=== PATIENT | female | born 1960 | race Caucasian/White ===

== ENCOUNTER 2016-09-01 19:34 | Inpatient (IN) | payer OTHER ==
[~2016-09-01] VITALS: Ht 157.5 cm; Wt 67.5 kg
[~2016-09-01 19:34] MED LIST: ACET325T33 PO; BACTDS PO; CEPH-443 PO
[2016-09-01] MEDS ORDERED: morphine 4 MG/ML VIAL IV STA (21:49)
[2016-09-01] MEDS ORDERED: SOD CHLORIDE 0.9% 1,000 ML IV STA (21:49)
[2016-09-01] MEDS ORDERED: ONDANSETRON 4 MG INJ IV STA ×2 (21:49→23:36)
[2016-09-01 22:52] LABS: ADD UMIC YES; URINE BILIRUBIN (Dip) NEGATIVE (NEGATIVE); URINE BLOOD (Dip) 1+ (NEGATIVE); URINE COLOR YELLOW (YELLOW); URINE KETONES (Dip) TRACE (NEGATIVE); URINE LEUKOCYTE ESTERASE (Dip) 1+ (NEGATIVE); URINE NITRITE (Dip) NEGATIVE (NEGATIVE); URINE TOTAL PROTEIN (Dip) 1+ (NEGATIVE); URINE UROBILINOGEN (Dip) 0.2 E.U./dL (0.1-1.0)
[2016-09-01 23:11] LABS: SQUAMOUS EPITHELIAL CELL,UR MANY
[2016-09-01 23:12] LABS: BACTERIA,URINE MANY
[2016-09-01 23:32] LABS: ADD SCAN DIFF NO
[2016-09-01] MEDS ORDERED: HYDROmorphONE 1 MG/ML SYG IV STA (23:36)
[2016-09-01 23:37] LABS: ABNORMAL IP MESSAGE 1; BASOPHIL # 0.1 10^3/ul (0.0-0.1); BASOPHILS % 0.3 % (0.0-2.0); EOSINOPHILS # 0.2 10^3/ul (0.0-0.5); HEMATOCRIT 33.1 % (37.0-47.0); HEMOGLOBIN 11.1 g/dl (12.0-16.0); LYMPHOCYTES # 2.3 10^3/ul (0.8-2.9); LYMPHOCYTES % 10.1 % (15.0-51.0); MEAN CORPUSCULAR HGB CONC 33.5 g/dl (32.0-37.0); MEAN CORPUSCULAR VOLUME 86.4 fl (82.0-101.0); MEAN PLATELET VOLUME 9.5 fl (7.4-10.4); MONOCYTE # 1.7 10^3/ul (0.3-0.9); MONOCYTES % 7.5 % (0.0-11.0); NEUTROPHIL # 18.4 10^3/ul (1.6-7.5); NEUTROPHILS % 80.1 % (39.0-77.0); PLATELET COUNT 503 10^3/UL (140-415); RED BLOOD COUNT 3.83 10^6/ul (4.20-5.40); RED CELL DISTRIBUTION WIDTH 12.9 % (11.5-14.5)
--- NOTE | 2016-09-01 23:37 | RADRPT ---
PROCEDURE: CT ABDOMEN/PELVIS WITHOUT CONTRAST CLINICAL INDICATION: 56-year-old female with abdominal pain. TECHNIQUE: The study was performed utilizing a [employer] VCT 64-slice CT scanner. Direct axia l sections were obtained through the abdomen and pelvis without the use of intravenous contrast mate rial. Sagittal and coronal reformations were obtained. One or more of the following dose reduction t echniques were utilized: automated exposure control, adjustment of the mA and/or kV according to pat ient's size or use of iterative reconstruction technique. The images were reviewed on a PACS workst [employer]. CTD/vol = 8.9 mGy; Total Exam DLP = 515.1 mGy-cm. COMPARISON: Right upper quadrant ultrasound September 01, 2016. FINDINGS: There is a minimal right pleural effusion with mild right basilar subsegmental atelectasis. The erica er has a normal size and contour. There is a cyst identified within the medial segment of the left lobe of the liver measuring approximately 1.6 x 1.7 x 1.8 cm on axial image 3-31. No intrahepatic n or extrahepatic biliary ductal dilatation is seen. The gallbladder demonstrates no wall thickening n or pericholecystic fluid. No biliary stones are evident. The pancreas is without areas of abnormal a ttenuation. The spleen is identified and has a normal size without abnormal density. The adrenal gl ands are unremarkable. There is mild prominence of the right renal collecting system without deni o bstructive uropathy. The left kidney is without abnormal density, calculi or obstruction.. No hydro ureteronephrosis nor nephroureterolithiasis is evident. The urinary bladder contains urine. The appe ndix is difficult to discern from the adjacent small bowel however appears to be diffusely dilated measuring up to 13 mm with extensive inflammatory changes within the right lower quadrant. There is diffuse thickening and edematous appearance to the ascending colon measuring up to 8.[address] transverse dimension which may be secondarily involved. The uterus is unremarkable. There is no significant pelvic free fluid. The aortoiliac vessels are without aneurysmal dilatation. The osseou s structures are intact. There is nonspecific infiltration of the right flank soft tissues. IMPRESSION: 1. Minimal right pleural effusion with basilar subsegmental atelectasis. 2. Left hepatic cyst. 3. Mild prominence of the right renal collecting system without deni obstructive uropathy. 4. The appendix is somewhat difficult to discern from the adjacent small bowel however appears to b e diffusely dilated measuring up to 13 mm with extensive surrounding right lower quadrant infiltrati on suggestive of acute appendicitis. Clinical correlation is necessary. 5. Dilated diffusely thickened ascending colon which may be secondary involved however a superimpos ed colitis or underlying tumor cannot be totally excluded. CRITICAL RESULTS: A call report was made to [facility] MG Crouch on September 01, 2016 11:27 p. m. .Dangelo Morales MD, MD Date Time Electronically viewed and signed by .Dangelo Morales MD, MD on 09/01/2016 23:37 .M/
--- NOTE | 2016-09-01 23:38 | RADRPT ---
PROCEDURE: ULTRASOUND LIMITED ABDOMEN CLINICAL INDICATION: 56-year-old female with abdominal pain. TECHNIQUE: Multiple sonographic of the right upper quadrant of the abdomen were obtained. The imag es were reviewed on a PACS workstation. COMPARISON: None. FINDINGS: The pancreas is partially visualized and is otherwise without abnormal echogenicity. The liver displays normal echogenicity. The liver measures 13.7 cm in length. No evidence of intrah epatic biliary ductal dilatation is seen. The portal and hepatic veins are unremarkable. The gallbladder demonstrates no wall thickening, sludge, nor stones. No pericholecystic fluid is see n. The common bile duct measures 5.6 mm and is not dilated. The right kidney displays normal echogenicity. The right kidney measures 11.7 cm in maximal length. There is mild prominence of the right renal collecting system without deni hydronephrosis. No free fluid is seen. IMPRESSION: Mild prominence of the right renal collecting system without deni hydronephrosis. .Dangelo Morales MD, MD Date Time Electronically viewed and signed by .Dangelo Morales MD, on 09/01/2016 23:38 .M/
[2016-09-02] VITALS (23 sets, daily range): BP systolic 96–148; BP diastolic 53–81; PULSE 85–100; RESP 16–31; TEMP 99.1; Ht 157.5 cm; Wt 67.5 kg
[2016-09-02] MEDS ORDERED: PIPER-TAZO 3.375 GM IV (PMX) 100 ML IVPB ONE
[2016-09-02] MEDS ORDERED: SOD CHLORIDE 0.9% 1,000 ML IV ONE
[2016-09-02 00:07] LABS: ALBUMIN 3.4 g/dl (3.3-4.9)
[2016-09-02 00:08] LABS: POTASSIUM 4.1 mmol/L (3.5-5.1)
[2016-09-02 00:09] LABS: INR 1.06; PARTIAL THROMBOPLASTIN TIME 25.2 Sec (25.0-35.0); PROTIME 13.8 Sec (12.2-14.2); PT RATIO 1.1
[2016-09-02 00:10] LABS: BILIRUBIN,INDIRECT 0.1 mg/dl (0-1.1); BILIRUBIN,TOTAL 0.1 mg/dl (0.2-1.3); CREATININE 0.83 mg/dl (0.44-1.00)
[2016-09-02 00:11] LABS: ALBUMIN/GLOBULIN RATIO 0.72; CALCIUM 8.8 mg/dl (8.4-10.2); TOTAL PROTEIN 8.1 g/dl (6.1-8.1)
--- NOTE | 2016-09-02 00:30 | ERD ---
ER Documentation Chief Complaint Date/Time DATE: 09/02/16 TIME: 00:27 Chief Complaint AP x3 days HPI This is a 56-year-old female presents to the ER with right-sided abdominal pain for the last 5 days. Pain is sharp and intermittent. Movement makes pain worse. Patient took an aspirin for pain however this did not help. Patient's appetite has been decreased has not been able to eat anything. She denies any nausea vomiting or diarrhea. She does have a fever. Patient denies any urinary frequency or dysuria. She denies any hematuria she denies any chest pain or shortness of breath. ROS 12 point review of systems was done, all negative except per HPI. 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 HEENT: Atraumatic. CHEST: Clear to auscultation bilaterally. There are no rales, wheezes or rhonchi. HEART: Regular rate and rhythm. No murmurs, clicks, rubs or gallops. ABDOMEN: Tender to palpation in the right lower quadrant.. Good bowel sounds. No rebound or guarding. No gross peritonitis. No gross organomegaly or masses. Positive McBurney's point BACK: No midline or flank tenderness. EXTREMITIES: Full range of motion. Grossly neurovascularly intact. NEURO: Alert and oriented. Result Diagram: 09/01/16 2325 09/01/16 2325 Results 24 hrs Laboratory Tests Test 09/01/16 22:15 09/01/16 23:25 09/01/16 23:48 Urine Bacteria MANY Urine Bilirubin NEGATIVE Urine Clarity SLIGHTLY CLOUDY Urine Color YELLOW Urine Glucose 0.1%% Urine Hemoglobin 1+ Urine Ketones TRACE Urine Leukocyte Esterase 1+ Urine Microscopic RBC 10-25/HPF Urine Microscopic WBC 25-50/HPF Urine Nitrite NEGATIVE Urine Specific [place] 1.020 Urine Squamous Epithelial Cells MANY Urine Total Protein 1+ Urine Urobilinogen 0.2 E.U./dL Urine pH 6.0 Alanine Aminotransferase (ALT/SGPT) 20IU/L Albumin 3.4g/dl Albumin/Globulin Ratio 0.72 Alkaline Phosphatase 148IU/L Anion Gap 20 Aspartate Amino Transf (AST/SGOT) 19IU/L Basophils # 0.110^3/ul Basophils % 0.3% Blood Urea Nitrogen 16mg/dl Calcium Level 8.8mg/dl Carbon Dioxide Level 26mmol/L Chloride Level 97mmol/L Creatinine 0.83mg/dl Direct Bilirubin 0.00mg/dl Eosinophils # 0.210^3/ul Eosinophils % 1.0% Globulin 4.70g/dl Glucose Level 176mg/dl Hematocrit 33.1% Hemoglobin 11.1g/dl Indirect Bilirubin 0.1mg/dl Lipase 28U/L Lymphocytes # 2.310^3/ul Lymphocytes % 10.1% Mean Corpuscular Hemoglobin 29.0pg Mean Corpuscular Hemoglobin Concent 33.5g/dl Mean Corpuscular Volume 86.4fl Mean Platelet Volume 9.5fl Monocytes # 1.710^3/ul Monocytes % 7.5% Neutrophils # 18.410^3/ul Neutrophils % 80.1% Nucleated Red Blood Cells # 0.010^3/ul Nucleated Red Blood Cells % 0.0/100WBC Platelet Count 04747^3/UL Potassium Level 4.1mmol/L Red Blood Count 3.8310^6/ul Red Cell Distribution Width 12.9% Sodium Level 139mmol/L Total Bilirubin 0.1mg/dl Total Protein 8.1g/dl White Blood Count 23.010^3/ul Activated Partial Thromboplast Time 25.2Sec INR International Normalized Ratio 1.06 Prothrombin Time 13.8Sec Prothrombin Time Ratio 1.1 Current Medications Medications (Trade) Dose Ordered Sig/Priya Route PRN Reason Start Time Stop Time Status Last Admin Dose Admin Sodium Chloride (NS) 1,000 ml @ 1,000 mls/hr Q1H STAT IV 09/01/16 21:49 09/01/16 22:48 DC 09/01/16 23:39 Morphine Sulfate (morphine) 4 mg ONCE STAT IV 09/01/16 21:49 09/01/16 21:51 DC 09/01/16 23:40 Ondansetron HCl 4 mg 4 mg ONCE STAT IV 09/01/16 21:49 09/01/16 21:51 DC 09/01/16 23:39 Piperacillin Sod/ Tazobactam Sod 100 ml @ 200 mls/hr ONCE ONCE IVPB 09/02/16 00:00 09/02/16 00:29 09/02/16 00:01 Sodium Chloride (NS) 1,000 ml @ 1,000 mls/hr Q1H ONCE IV 09/02/16 00:00 09/02/16 00:59 Hydromorphone HCl (Dilaudid) 1 mg ONCE STAT IV 09/01/16 23:36 09/01/16 23:41 DC Ondansetron HCl (Zofran Inj) 4 mg ONCE STAT IV 09/01/16 23:36 09/01/16 23:41 DC 09/02/16 00:01 Procedures/MDM Differential diagnosis includes but is not limited to appendicitis, UTI, constipation, ectopic , ovarian torsion, PID, Mittelschmerz, fibroid. Patient is found to have acute appendicitis. Patient will be admitted to the hospital for further management and care. Departure Diagnosis: Primary Impression: Appendicitis Condition: Stable SARAHILEANA Perez Sep 02, 2016 00:30
--- NOTE | 2016-09-02 00:59 | RADRPT ---
PROCEDURE: XR Chest. CLINICAL INDICATION: Chest pain TECHNIQUE: Single frontal view of the chest was obtained COMPARISON: None FINDINGS: Hypoinflated lungs accentuate pulmonary vascular markings and the cardiac silhouette. The heart and mediastinum are within normal limits. The lungs are clear. There is no pleural effusion or pneumothorax. IMPRESSION: No acute disease. RPTAT: [facility] Physician Jose Date Time Electronically viewed and signed by Monty Kasper Physician on 09/02/2016 00:58 RS/
[2016-09-02] MEDS ORDERED: ACETAMINOPHEN 325 MG TAB PO PRN (02:00)
[2016-09-02] MEDS ORDERED: morphine 4 MG/ML VIAL IV PRN (02:00)
[2016-09-02] MEDS ORDERED: ONDANSETRON 4 MG INJ IV PRN ×3 (02:00→15:30)
--- NOTE | 2016-09-02 02:12 | QN ---
Documentation Comment H&P dict a/p 1. dr edward morrow contacted by KATIE Gottlieb MD Sep 02, 2016 02:12
--- NOTE | 2016-09-02 02:49 | HP ---
DATE OF ADMISSION: 09/01/2016 CHIEF COMPLAINT: Abdominal pain. HISTORY OF PRESENT ILLNESS: The patient presents to the emergency room at [facility] with abdominal pain which she states has been progressively worsening over the last 5 days. This is not associated with any nausea or vomiting, but is associated with some anorexia secondary to pain. Den ies any diarrhea or constipation. States that this pain is worse in the right lower quadrant and hall s been progressive worsening, causing her to come to the emergency room today. PAST MEDICAL HISTORY: Nil. MEDICATIONS: As an outpatient nil. ALLERGIES: Nil. SOCIAL HISTORY: Patient lives at home in [place]. Works part-time in a shop. Denies tobacco, alc ohol, or illicit drug use. She takes the bus to her various appointments. Is independent of activi ties of daily living. FAMILY HISTORY: Noncontributory. REVIEW OF SYSTEMS: Five systems reviewed and found not to be revealing. PHYSICAL EXAMINATION: VITAL SIGNS: Blood pressure is 106/58, pulse rate 89, respirations 16, temperature is 99.1. It sierra uld be noted at time of arrival, patient had a temperature of 101.9. GENERAL: Pleasant woman in no acute distress, alert and oriented x3. HEENT: Normocephalic, atraumatic without evident scleral icterus, perioral cyanosis. Mucous membra edna moist. NECK: Soft and supple without masses. No evidence of jugular venous distention or carotid bruits. CHEST: Clear to auscultation and percussion bilaterally. HEART: Regular rate and rhythm, S1-S2, no added sounds. ABDOMEN: Soft, tender in the right lower quadrant. No palpable hepatosplenomegaly. EXTREMITIES: Without clubbing, cyanosis or edema. SKIN: Without rashes. NEUROLOGIC: Grossly intact. LABORATORY STUDIES: Reveal a hemoglobin of 11.1 grams, white count 23,000, platelets of 503,000. I NR is 1.1, sodium 139, potassium 4.1, chloride 97, bicarbonate 26, BUN 16, creatinine 0.83, glucose 176. Liver function tests remarkable for an alkaline phosphatase of 148, otherwise normal. UA show s 25 to 50 white blood cells, 10 to 25 red blood cells with only 1+ esterase. Chest x-ray is read a s normal. Abdominal ultrasound shows no gallbladder wall thickening, sludge, or stones. No pericho lecystic fluid. Abdominal CT scan shows some prominence of the appendix measuring approximately 13 mm with extensive infiltration surrounding suggestive of acute appendicitis. ASSESSMENT AND PLAN: 1. GI: Patient with acute appendicitis based on CT findings and right lower quadrant pain. We yohannes l plan to admit. Obtain surgical consultation at this point. Give IV antibiotics with Zosyn. 2. Preoperative evaluation. Patient is a low risk patient for a low to intermediate risk procedure . Urgency of surgical disease precludes further risk stratification or modification. The patient i s advised to proceed to the operating room at the first opportunity. "Patient is cleared for surger y." 3. Prophylaxis with MIRA pastor. Dictated By: KATIE MEDINA MD RER/NTS Conf#: [id number] DID#: [id number]
[2016-09-02] MEDS: SOD CHLORIDE 0.9% 1,000 ML IV SCH ×3 (04:00→20:24)
[2016-09-02] MEDS: PIPER-TAZO 3.375 GM IV (PMX) 100 ML IVPB SCH ×3 (06:03→23:43)
[2016-09-02] MEDS ORDERED: EPHEDrine SULFATE 50 MG/5 ML SYG ONE (07:00)
[2016-09-02] MEDS ORDERED: LISI20TA11 PO (07:17)
[2016-09-02] MEDS ORDERED: DULO20CA43 PO (07:17)
[2016-09-02] MEDS ORDERED: LANT3I SC (07:20)
[2016-09-02] MEDS ORDERED: ASPI81TA3 PO (07:20)
[2016-09-02] MEDS ORDERED: DEXTROSE 50% 50 ML SYRINGE IV PRN ×2 (09:30)
[2016-09-02] MEDS ORDERED: GLUCOSE GEL 15 GRAM TUBE PO PRN ×2 (09:30)
[2016-09-02] MEDS ORDERED: GLUCOSE GEL 15 GRAM TUBE BUCCAL PRN (09:30)
[2016-09-02] MEDS ORDERED: GLUCAGON 1 MG INJ IM PRN (09:30)
[2016-09-02] MEDS: LISINOPRIL 20 MG TAB PO SCH (10:00)
[2016-09-02] MEDS: DULOXETINE 20 MG CAP DR PO SCH (10:13)
[2016-09-02] MEDS ORDERED: MIDAZOLAM 1 MG/ML 2 ML INJ ONE ×2 (10:55→13:26)
[2016-09-02] MEDS ORDERED: LIDOCAINE 100 MG SYRINGE ONE (10:55)
[2016-09-02] MEDS ORDERED: PROPOFOL 0 ML ONE (10:55)
[2016-09-02] MEDS ORDERED: ROCURONIUM 50 MG INJ ONE ×2 (10:55→13:25)
[2016-09-02] MEDS ORDERED: FENTAnyl 50 MCG/ML VIAL ONE (10:55)
[2016-09-02] MEDS: INSULIN ASPART [NOVOLOG] 3 ML PEN SC SCH ×3 (13:00→20:18)
[2016-09-02] MEDS ORDERED: BUPIVACAINE 0.5%/EPI (SDV) 30 ML INJ ONE (13:01)
[2016-09-02] MEDS ORDERED: BUPIVACAINE 0.25%/EPI (SDV) 30 ML INJ ONE (13:03)
[2016-09-02] MEDS ORDERED: PROPOFOL 20 ML ONE (13:25)
[2016-09-02] MEDS ORDERED: METOCLOPRAMIDE 10 MG INJ ONE (13:26)
[2016-09-02] MEDS ORDERED: CEFAZOLIN 1 GM INJ ONE (13:45)
--- NOTE | 2016-09-02 13:49 | CONS ---
DATE OF ADMISSION: 09/02/2016 DATE OF CONSULTATION: 09/02/2016 TYPE OF CONSULTATION: Surgical REASON FOR CONSULTATION: Acute appendicitis. HISTORY OF PRESENT ILLNESS: The patient is an otherwise healthy and fit 56-year-old female who pres ented to the emergency room last night with a 5-day history of nonspecific right-sided abdominal claudette n which had been increasing in severity. This has been associated with anorexia, but no vomiting. She has had a low-grade fever. CT scan of the abdomen was compatible with an appendicitis with thic kening of the cecum as well. Neoplasm could not be ruled out. The patient is admitted and surgical consultation was requested in that regard. PAST MEDICAL HISTORY: Fourth toe amputation. No other hospitalizations or illnesses. REVIEW OF SYSTEMS: HEENT: Unremarkable. PULMONARY: No history of shortness of breath or pneumonia. CARDIAC: History of hypertension, but no chest pain or CO. ABDOMEN: As in the HPI. MEDICATIONS: Include: 1. Tylenol. 2. Bactrim. 3. Keflex. ALLERGIES: NONE. PHYSICAL EXAMINATION: GENERAL: The patient is a 56-year-old Irish-speaking female who is awake and alert and in no acut e distress. HEENT: Within normal limits. LUNGS: Clear. HEART: Regular rhythm. ABDOMEN: Tender in the right lower quadrant with guarding, but no rebound. EXTREMITIES: Unremarkable. LABORATORY DATA: The patient's hematocrit is 33 with a white count of 23,000. BUN, glucose and baljinder ctrolytes are unremarkable. IMAGING: As noted above. IMPRESSION: Acute appendicitis. Remote possibility of cecal neoplasm. PLAN: The patient will undergo laparoscopic appendectomy, possible open. I have discussed the proc edure, indications, alternatives and risks with the patient, who has a good understanding of her sit uation and agrees to the proposed plan of therapy as outlined. Dictated By: ANGELICA BLAND/RIGO Conf#: [id number] DID#: [id number]
[2016-09-02] MEDS ORDERED: NEOSTIGMINE 3 MG/3 ML SYRINGE ONE (14:00)
[2016-09-02] MEDS ORDERED: GLYCOPYRROLATE 0.4 MG INJ ONE (14:00)
[2016-09-02] MEDS ORDERED: HYDROmorphONE 2 MG/ML SYG ONE (14:01)
[2016-09-02] MEDS ORDERED: PHENYLephrine (100 MCG/ML) 5ML SYG ONE (14:24)
[2016-09-02] MEDS ORDERED: ROPIVACAINE 0.5 % 30 ML VIAL ONE (14:29)
[2016-09-02] MEDS ORDERED: MEPERIDINE 25 MG INJ IV PRN (14:30)
[2016-09-02] MEDS ORDERED: DIPHENHYDRAMINE 50 MG INJ IV PRN (14:30)
[2016-09-02] MEDS ORDERED: METOCLOPRAMIDE 10 MG INJ IV PRN (14:30)
[2016-09-02] MEDS ORDERED: HYDROmorphONE (0.2 MG/ML) 10ML SYG IV PRN ×3 (14:30)
[2016-09-02] MEDS ORDERED: ENOXAPARIN 80 MG/0.8 ML SYG SC SCH (15:30)
[2016-09-02] MEDS ORDERED: OXYCODONE/ACETAMINOPHEN (5/325) TAB PO PRN (15:30)
[2016-09-02] MEDS ORDERED: morphine 2 MG INJ IV PRN (15:30)
--- NOTE | 2016-09-02 15:31 | OPR ---
DATE OF OPERATION: 09/02/2016 PREOPERATIVE DIAGNOSIS: Acute appendicitis with possible cecal mass. POSTOPERATIVE DIAGNOSIS: Right pericolic abscess with unidentifiable appendix and possible cecal ma ss. OPERATION PERFORMED: 1. Laparoscopy procedure. 2. Right hemicolectomy. 3. Drainage of right pericolic abscess. SURGEON: ANGELICA CORREA MD. ANESTHESIA: General. ANESTHESIOLOGIST: FAYE SAINI MD. OPERATIVE REPORT: After satisfactory general anesthesia was achieved, the abdomen was prepped and d raped in the usual fashion. The abdomen was insufflated with carbon dioxide through an umbilical Ve ress needle to 15 mmHg pressure. The Veress needle was removed and the umbilical incision extended to 5 mm, through which a 5 mm trocar was placed. A 5-mm, 0-degree lens was placed. Laparoscopy sierra wed an intense desmoplastic reaction in the right abdomen. Under direct visualization, a 5 mm supra pubic trocar was placed. The right colon was mobilized with immediate entry into a large abscess ca vity. This was suctioned off. There were approximately 3 fecaliths identified in this abscess cavi ty, but after extensive dissection, there was no identifiable appendix. Furthermore, there was a zaragoza ggestion of a mass in the cecum. The procedure was converted to open. The suprapubic trocar was le ft in place. The abdomen was entered through a transverse right abdominal incision. Abdominal expl oration showed a large phlegmon and indurated area in the right pericolic gutter. The cecum, ascend ing and transverse colon were mobilized. There was no identifiable appendix. There was induration of the cecum, which was nonspecific. The appendix had apparently liquified and its orifice was not identifiable. A right hemicolectomy was performed. The terminal ileum and the right transverse col on were divided with is a 60 mm REGINA stapler. The mesentery to the right colon was divided with impa ct LigaSure. The specimen was submitted as right colon. Next, the antimesenteric border restaple l ine was excised in an 80 mm REGINA stapler was inserted into each limb of bowel, closed and fired, achi eving a [id number] anastomosis. The secondary defect was closed with a TA60 stapler. The resulti ng anastomosis was widely patent, tension free and well vascularized. It was oversewn circumferenti ally with running 3-0 Vicryl suture. The right abdomen was then irrigated with 2 liters of saline. A #19 round Sancho drain was placed, draining the right paracolic gutter and exiting through the sup rapubic trocar site where it was secured to the skin with 2-0 nylon. The abdomen was closed in laye rs. The posterior rectus sheath and peritoneum were closed with running #2 Vicryl. Anterior rectus sheath and fascia were closed with running #2 Vicryl. Skin was closed with nica. OPERATIVE BLOOD LOSS: Less than 100 mL. SPONGE AND NEEDLE COUNTS: Reported as correct x2. The patient was transferred to the recovery room in stable condition. Dictated By: ANGELICA BLAND/RIGO Conf#: [id number] DID#: [id number]
[2016-09-02] MEDS: METOCLOPRAMIDE 10 MG INJ IV SCH ×2 (17:36→23:48)
[2016-09-02] MEDS: OXYCODONE/ACETAMINOPHEN (5/325) TAB PO PRN (17:49)
[2016-09-02] MEDS: ENOXAPARIN 80 MG/0.8 ML SYG SC SCH (20:19)
[2016-09-02] MEDS: CEFAZOLIN 1 GM/50 ML (PMX) 50 ML IVPB SCH (21:09)
[2016-09-02] MEDS: metroNIDAZOLE 500 MG/NS (PMX) 100 ML IVPB SCH (22:32)
[2016-09-03] MEDS: INSULIN ASPART [NOVOLOG] 3 ML PEN SC SCH ×4 (01:00→12:47)
[2016-09-03] MEDS: METOCLOPRAMIDE 10 MG INJ IV SCH ×3 (04:29→17:41)
[2016-09-03] MEDS: CEFAZOLIN 1 GM/50 ML (PMX) 50 ML IVPB SCH ×3 (05:10→21:24)
[2016-09-03] MEDS: metroNIDAZOLE 500 MG/NS (PMX) 100 ML IVPB SCH ×3 (05:57→21:24)
[2016-09-03 06:27] LABS: ADD SCAN DIFF NO
[2016-09-03 06:52] LABS: ABNORMAL IP MESSAGE 1; HEMOGLOBIN 9.5 g/dl (12.0-16.0); MEAN CORPUSCULAR HEMOGLOBIN 28.9 pg (29.0-33.0); MEAN CORPUSCULAR HGB CONC 32.8 g/dl (32.0-37.0); MEAN CORPUSCULAR VOLUME 88.1 fl (82.0-101.0); MEAN PLATELET VOLUME 9.7 fl (7.4-10.4); PLATELET COUNT 431 10^3/UL (140-415); RED BLOOD COUNT 3.29 10^6/ul (4.20-5.40); RED CELL DISTRIBUTION WIDTH 13.4 % (11.5-14.5); WHITE BLOOD COUNT 24.7 10^3/ul (4.8-10.8)
[2016-09-03] MEDS: PIPER-TAZO 3.375 GM IV (PMX) 100 ML IVPB SCH ×3 (06:56→21:24)
[2016-09-03 07:00] VITALS: BP 112/59; RESP 20
[2016-09-03 07:07] LABS: ALBUMIN 2.5 g/dl (3.3-4.9)
[2016-09-03 07:08] LABS: POTASSIUM 4.6 mmol/L (3.5-5.1)
[2016-09-03 07:10] LABS: ALBUMIN/GLOBULIN RATIO 0.62; BILIRUBIN,INDIRECT 0.1 mg/dl (0-1.1); BILIRUBIN,TOTAL 0.1 mg/dl (0.2-1.3); CREATININE 0.62 mg/dl (0.44-1.00); TOTAL PROTEIN 6.5 g/dl (6.1-8.1)
[2016-09-03 07:11] LABS: CALCIUM 8.2 mg/dl (8.4-10.2)
[2016-09-03 07:15] LABS: MAGNESIUM 1.9 mg/dl (1.7-2.5); PHOSPHORUS 3.2 mg/dl (2.5-4.9)
[2016-09-03] MEDS: LISINOPRIL 20 MG TAB PO SCH (09:00)
[2016-09-03] MEDS: DULOXETINE 20 MG CAP DR PO SCH (09:36)
[2016-09-03 10:27] LABS: LYMPHOCYTES # 0.7 10^3/ul (0.8-2.9); MONOCYTE # 2.2 10^3/ul (0.3-0.9); NEUTROPHIL # 19.8 10^3/ul (1.6-7.5)
[2016-09-03 10:28] LABS: PLATELETS CLUMPS OCCASIONAL
--- NOTE | 2016-09-03 11:25 | PN ---
Date/Time of Note Date/Time of Note DATE: 09/03/16 TIME: 11:11 Assessment/Plan VTE Prophylaxis VTE Prophylaxis Intervention: SCD's Lines/Catheters IV Catheter Type (from Nrs): Peripheral IV Urinary Cath still in place: Yes Reason Cath still needed: other (indicate) (post op ) Assessment/Plan Assessment/Plan 56 yo female with: 1. Right pericolic abscess with unidentifiable appendix and possible cecal mass s/p right hemicolectomy and drainage of right pericolic abscess Continue IV abx, drain in place, still with significant leukocytosis and mild bandemia Follow cx and labs for adjustments of abx Follow up surgical recommendations 2. Diabetes Mellitus: A1C 8.0 For now continue SSI and resume Lantus at 15 unuts Qhs Prophylaxis: SCDs tono DVT ppx and Pepcid for GI ppx. Disposition: follow up surgical recs today Subjective 24 Hr Interval Summary Free Text/Dictation Intraop findings noted, intraop cx pending No Flatus yet On clears Afebrile and on IV abx Exam/Review of Systems Vital Signs Vitals Vital Signs Date Time Temp Pulse Resp B/P Pulse Ox O2 Delivery O2 Flow Rate FiO2 09/03/16 07:00 98.2 96 20 112/59 96 09/02/16 20:08 Nasal Cannula 2.0 Intake and Output 09/02/16 09/02/16 09/03/16 15:00 23:00 07:00 Intake Total 2590 ml 1385 ml Output Total 50 ml 1490 ml 1200 ml Balance -50 ml 1100 ml 185 ml Exam Constitutional: alert, oriented, well developed Respiratory: clear to auscultation, normal air movement Cardiovascular: nl pulses, regular rate and rhythm Gastrointestinal: other (dressings in place and drain x [address] ), soft, tender (around incision sites ) Musculoskeletal: nl extremities to inspection Extremities: normal pulses, other (no edema, clubbing or cyanosis ) Neurological: DIRECTOR OF DONOR RELATIONS II-XII intact, nl mental status, nl speech, other (in bed, limited exam ) Results Result Diagram: 09/03/16 0554 09/03/16 0554 Results 24 hrs Laboratory Tests Test 09/02/16 17:35 09/02/16 20:16 09/03/16 04:32 09/03/16 05:54 Bedside Glucose 160 198 190 Alanine Aminotransferase (ALT/SGPT) 22 Albumin 2.5 L Albumin/Globulin Ratio 0.62 Alkaline Phosphatase 102 Anion Gap 18 H Aspartate Amino Transf (AST/SGOT) 19 Band Neutrophils % 8.0 H Blood Urea Nitrogen 10 Calcium Level 8.2 L Carbon Dioxide Level 22 Chloride Level 103 Clumped Platelets OCCASIONAL Creatinine 0.62 Direct Bilirubin 0.00 Eosinophils # Eosinophils % Globulin 4.00 H Glucose Level 214 Hematocrit 29.0 L Hemoglobin 9.5 L Hemoglobin A1c 8.0 H Indirect Bilirubin 0.1 Lymphocytes # 0.7 L Lymphocytes % 3.0 L Magnesium Level 1.9 Mean Corpuscular Hemoglobin 28.9 L Mean Corpuscular Hemoglobin Concent 32.8 Mean Corpuscular Volume 88.1 Mean Platelet Volume 9.7 Monocytes # 2.2 H Monocytes % 9.0 Neutrophils # 19.8 H Neutrophils % 80.0 H Phosphorus Level 3.2 Platelet Count 431 H Potassium Level 4.6 Red Blood Count 3.29 L Red Cell Distribution Width 13.4 Sodium Level 138 Total Bilirubin 0.1 L Total Protein 6.5 # White Blood Count 24.7 H Test 09/03/16 09:35 Bedside Glucose 215 Medications Medications Current Medications Acetaminophen (Tylenol Tab) 650 mg Q4H PRN PO pain/fever; Start 09/02/16 at 02: 00 Morphine Sulfate 4 mg 4 mg Q4H PRN IV pain Last administered on 09/02/16 05:17 ; Admin Dose 4 MG; Start 09/02/16 at 02:00 Piperacillin Sod/ Tazobactam Sod 100 ml @ 200 mls/hr Q8 IVPB Last administered on 09/03/16 06:56; Admin Dose 200 MLS/HR; Start 09/02/16 at 06:30 Sodium Chloride (NS) 1,000 ml @ 75 mls/hr [id number] IV Last administered on 09/02 20:24; Admin Dose 75 MLS/HR; Start 09/02/16 at 02:00 Insulin Aspart (Novolog Insulin Pen) NOVOLOG *MILD* ALGORI... Q4 SC Last administered on 09/03/16 09:42; Admin Dose 3 UNIT; Start 09/02/16 at 13:00 Miscellaneous Information 1 ea NOTE XX ; Start 09/02/16 at 09:30 Glucose (Glutose) 15 gm Q15M PRN PO DECREASED GLUCOSE; Start 09/02/16 at 09:30 Glucose (Glutose) 22.5 gm Q15M PRN PO DECREASED GLUCOSE; Start 09/02/16 at 09: 30 Dextrose (D50w Syringe) 25 ml Q15M PRN IV DECREASED GLUCOSE; Start 09/02/16 at 09:30 Dextrose (D50w Syringe) 50 ml Q15M PRN IV DECREASED GLUCOSE; Start 09/02/16 at 09:30 Glucagon (Glucagen) 1 mg Q15M PRN IM DECREASED GLUCOSE; Start 09/02/16 at 09:30 Glucose (Glutose) 15 gm Q15M PRN BUCCAL DECREASED GLUCOSE; Start 09/02/16 at 09 :30 Duloxetine HCl (Cymbalta) 20 mg DAILY PO Last administered on 09/03/16 09:36; Admin Dose 20 MG; Start 09/02/16 at 11:00 Lisinopril (Zestril) 20 mg DAILY PO ; Start 09/02/16 at 10:00 Oxycodone/ Acetaminophen (Percocet (5/ 325)) 1 tab Q4H PRN PO MILD PAIN (1-3) Last administered on 09/02/16 17:49; Admin Dose 1 TAB; Start 09/02/16 at 15:30 Oxycodone/ Acetaminophen (Percocet (5/ 325)) 2 tab Q4H PRN PO MODERATE PAIN (4- 6); Start 09/02/16 at 15:30 Morphine Sulfate (morphine) 2 mg ONCE PRN IV SEVERE PAIN LEVEL 7-10 Last administered on 09/02/16 23:44; Admin Dose 2 MG; Start 09/02/16 at 15:30 Ondansetron HCl (Zofran Inj) 4 mg Q6H PRN IV NAUSEA Last administered on 01:47; Admin Dose 4 MG; Start 09/02/16 at 15:30 Metoclopramide HCl 10 mg 10 mg Q6 IV Last administered on 09/03/16 04:29; Admin Dose 10 MG; Start 09/02/16 at 18:00 Cefazolin Sodium 50 ml @ 100 mls/hr Q8 IVPB Last administered on 09/03/16 05: 10; Admin Dose 100 MLS/HR; Start 09/02/16 at 22:00 Metronidazole (Flagyl 500 Mg (Pmx)) 100 ml @ 100 mls/hr Q8 IVPB Last administered on 09/03/16 05:57; Admin Dose 100 MLS/HR; Start 09/02/16 at 22:00 Enoxaparin Sodium (Lovenox) 70 mg Q24H SC Last administered on 09/02/16 20:19 ; Admin Dose 70 MG; Start 09/02/16 at 20:00 Procedures Procedures DATE OF OPERATION: 09/02/2016 PREOPERATIVE DIAGNOSIS: Acute appendicitis with possible cecal mass. POSTOPERATIVE DIAGNOSIS: Right pericolic abscess with unidentifiable appendix and possible cecal mass. OPERATION PERFORMED: 1. Laparoscopy procedure. 2. Right hemicolectomy. 3. Drainage of right pericolic abscess. SURGEON: ANGELICA CORREA MD. ANESTHESIA: General. ANESTHESIOLOGIST: FAYE SAINI MD. OPERATIVE REPORT: After satisfactory general anesthesia was achieved, the abdomen was prepped and draped in the usual fashion. The abdomen was insufflated with carbon dioxide through an umbilical Veress needle to 15 mmHg pressure. The Veress needle was removed and the umbilical incision extended to 5 mm, through which a 5 mm trocar was placed. A 5-mm, 0-degree lens was placed. Laparoscopy showed an intense desmoplastic reaction in the right abdomen. Under direct visualization, a 5 mm suprapubic trocar was placed. The right colon was mobilized with immediate entry into a large abscess cavity. This was suctioned off. There were approximately 3 fecaliths identified in this abscess cavity, but after extensive dissection, there was no identifiable appendix. Furthermore, there was a suggestion of a mass in the cecum. The procedure was converted to open. The suprapubic trocar was left in place. The abdomen was entered through a transverse right abdominal incision. Abdominal exploration showed a large phlegmon and indurated area in the right pericolic gutter. The cecum, ascending and transverse colon were mobilized. There was no identifiable appendix. There was induration of the cecum, which was nonspecific. The appendix had apparently liquified and its orifice was not identifiable. A right hemicolectomy was performed. The terminal ileum and the right transverse colon were divided with is a 60 mm REGINA stapler. The mesentery to the right colon was divided with impact LigaSure. The specimen was submitted as right colon. Next, the antimesenteric border restaple line was excised in an 80 mm REGINA stapler was inserted into each limb of bowel, closed and fired, achieving a [id number] anastomosis. The secondary defect was closed with a TA60 stapler. The resulting anastomosis was widely patent, tension free and well vascularized. It was oversewn circumferentially with running 3-0 Vicryl suture. The right abdomen was then irrigated with 2 liters of saline. A #19 round Sancho drain was placed, draining the right paracolic gutter and exiting through the suprapubic trocar site where it was secured to the skin with 2-0 nylon. The abdomen was closed in layers. The posterior rectus sheath and peritoneum were closed with running #2 Vicryl. Anterior rectus sheath and fascia were closed with running #2 Vicryl. Skin was closed with nica. OPERATIVE BLOOD LOSS: Less than 100 mL. SPONGE AND NEEDLE COUNTS: Reported as correct x2. The patient was transferred to the recovery room in stable condition. BLANCA CARVALHO Sep 03, 2016 11:22
--- NOTE | 2016-09-03 12:10 | PN ---
DATE: 09/03/2016 Postoperative day #1. The patient has been afebrile throughout and is markedly symptomatically impr junior. Her abdomen is now soft. The SUDARSHAN drainage is serosanguineous. Of note, is the fact that her pronounced leukocytosis persists at 24,700 with bandemia of 8. The patient has had no bowel functio n yet. PLAN: Continue medical management. The patient will need PT evaluation for progressive mobilizatio n. Dictated By: ANGELICA BLAND/RIGO Conf#: [id number] DID#: [id number]
[2016-09-03 13:00] VITALS: BP 98/57; RESP 18
[2016-09-03] MEDS: FAMOTIDINE 20 MG INJ IV SCH ×2 (14:22→21:33)
[2016-09-03] MEDS: SOD CHLORIDE 0.9% 1,000 ML IV SCH (14:49)
[2016-09-03 17:00] VITALS: BP 114/64; PULSE 89; RESP 18
[2016-09-03] MEDS: Insulin NOVOLOG SS MILD Algorithm (SS with meals and bedtime) SC SCH ×2 (17:05→20:56)
[2016-09-03] MEDS ORDERED: INSULIN ASPART [NOVOLOG] 3 ML PEN SC SCH (17:25)
[2016-09-03 19:36] VITALS: BP 111/58; RESP 16
[2016-09-03] MEDS: ENOXAPARIN 80 MG/0.8 ML SYG SC SCH (20:56)
[2016-09-03] MEDS ORDERED: INSULIN GLARGINE [LANtus] 3 ML PEN SC SCH (21:00)
[2016-09-04 00:05] VITALS: BP 109/60; RESP 18
[2016-09-04] MEDS: METOCLOPRAMIDE 10 MG INJ IV SCH ×5 (00:21→23:48)
[2016-09-04] MEDS: ACCUCHECK 2 AM XX SCH (02:00)
[2016-09-04 05:23] LABS: ADD SCAN DIFF NO
[2016-09-04 05:28] LABS: ABNORMAL IP MESSAGE 1; BASOPHIL # 0.1 10^3/ul (0.0-0.1); BASOPHILS % 0.3 % (0.0-2.0); EOSINOPHILS # 0.2 10^3/ul (0.0-0.5); EOSINOPHILS % 0.5 % (0.0-7.0); HEMOGLOBIN 8.9 g/dl (12.0-16.0); LYMPHOCYTES # 1.8 10^3/ul (0.8-2.9); LYMPHOCYTES % 6.4 % (15.0-51.0); MEAN CORPUSCULAR HEMOGLOBIN 28.5 pg (29.0-33.0); MEAN CORPUSCULAR VOLUME 86.5 fl (82.0-101.0); MEAN PLATELET VOLUME 9.6 fl (7.4-10.4); MONOCYTE # 1.4 10^3/ul (0.3-0.9); MONOCYTES % 4.9 % (0.0-11.0); NEUTROPHIL # 24.2 10^3/ul (1.6-7.5); NEUTROPHILS % 86.6 % (39.0-77.0); PLATELET COUNT 479 10^3/UL (140-415); RED BLOOD COUNT 3.12 10^6/ul (4.20-5.40); RED CELL DISTRIBUTION WIDTH 13.5 % (11.5-14.5); WHITE BLOOD COUNT 27.9 10^3/ul (4.8-10.8)
[2016-09-04] MEDS: PIPER-TAZO 3.375 GM IV (PMX) 100 ML IVPB SCH (05:33)
[2016-09-04] MEDS: CEFAZOLIN 1 GM/50 ML (PMX) 50 ML IVPB SCH (05:33)
[2016-09-04] MEDS: metroNIDAZOLE 500 MG/NS (PMX) 100 ML IVPB SCH ×3 (05:35→21:32)
[2016-09-04 05:47] LABS: PHOSPHORUS 2.4 mg/dl (2.5-4.9)
[2016-09-04 06:05] LABS: POTASSIUM 3.5 mmol/L (3.5-5.1)
[2016-09-04 06:08] LABS: CREATININE 0.63 mg/dl (0.44-1.00)
[2016-09-04 06:09] LABS: CALCIUM 8.2 mg/dl (8.4-10.2)
[2016-09-04] MEDS: IMIPENEM-CILAST 500MG IV (PMX) 100 ML IVPB SCH ×4 (08:53→23:48)
[2016-09-04] MEDS: FAMOTIDINE 20 MG INJ IV SCH ×2 (08:54→21:16)
[2016-09-04] MEDS: DULOXETINE 20 MG CAP DR PO SCH (08:54)
[2016-09-04] MEDS: SOD CHLORIDE 0.9% 1,000 ML IV SCH ×2 (08:54→21:31)
[2016-09-04] MEDS: LISINOPRIL 20 MG TAB PO SCH (08:54)
[2016-09-04] MEDS: ENOXAPARIN 40 MG/0.4 ML SYG SC SCH (08:57)
[2016-09-04] MEDS: Insulin NOVOLOG SS MILD Algorithm (SS with meals and bedtime) SC SCH ×4 (08:58→21:21)
[2016-09-04] MEDS ORDERED: LEVOFLOXACIN 750MG/D5W (PMX) 150 ML IVPB SCH (10:00)
[2016-09-04] MEDS ORDERED: POTASSIUM CHLORIDE (SR) 20 MEQ TAB PO STA (10:13)
--- NOTE | 2016-09-04 10:19 | PN ---
Date/Time of Note Date/Time of Note DATE: 09/04/16 TIME: 10:07 Assessment/Plan VTE Prophylaxis VTE Prophylaxis Intervention: LMWH Lines/Catheters IV Catheter Type (from Nrs): Peripheral IV Urinary Cath still in place: Yes Reason Cath still needed: other (indicate) (discontinue today ) Assessment/Plan Assessment/Plan 56 yo female with: 1. Right pericolic abscess with unidentifiable appendix and possible cecal mass s/p right hemicolectomy and drainage of right pericolic abscess Continue IV abx, drain in place, still with significant leukocytosis this AM. Intra op cx with E coli and Gamma hemolytic strep, changed abx to Imipenem based on current sensitivities D/c Perry today and Encourage ambulation Follow up surgical recommendations 2. Diabetes Mellitus: A1C 8.0 For now continue SSI and resume Lantus at 15 units Qhs, may titrate up to 20 unit qhs Replete K Prophylaxis: Lovenox for DVT ppx and Pepcid for GI ppx. Disposition: follow up surgical recs today Subjective 24 Hr Interval Summary Free Text/Dictation Patient had BM x2 Doing well WBC still up but afebrile, abx changed based on cx Exam/Review of Systems Vital Signs Vitals Vital Signs Date Time Temp Pulse Resp B/P Pulse Ox O2 Delivery O2 Flow Rate FiO2 09/04/16 00:05 98.4 91 18 109/60 96 09/03/16 17:00 Room Air 09/03/16 08:00 2.0 Intake and Output 09/03/16 09/03/16 09/04/16 15:00 23:00 07:00 Intake Total 150 ml 2105 ml 450 ml Output Total 980 ml 455 ml Balance 150 ml 1125 ml -5 ml Exam Constitutional: alert, oriented, well developed Respiratory: clear to auscultation, normal air movement Cardiovascular: nl pulses, regular rate and rhythm Gastrointestinal: non-tender, other (Drain in place ), soft Musculoskeletal: nl extremities to inspection Extremities: normal pulses Neurological: GIN INSPECTOR II-XII intact, nl mental status, nl speech, nl strength Results Result Diagram: 09/04/16 0415 09/04/16 0415 Results 24 hrs Laboratory Tests Test 09/03/16 12:08 09/03/16 16:53 09/03/16 20:46 09/04/16 04:15 Bedside Glucose 239 H 243 H 177 Anion Gap 14 Basophils # 0.1 Basophils % 0.3 Blood Urea Nitrogen 11 Calcium Level 8.2 L Carbon Dioxide Level 24 Chloride Level 105 Creatinine 0.63 Eosinophils # 0.2 Eosinophils % 0.5 Glucose Level 173 Hematocrit 27.0 L Hemoglobin 8.9 L Lymphocytes # 1.8 Lymphocytes % 6.4 L Magnesium Level 2.0 Mean Corpuscular Hemoglobin 28.5 L Mean Corpuscular Hemoglobin Concent 33.0 Mean Corpuscular Volume 86.5 Mean Platelet Volume 9.6 Monocytes # 1.4 H Monocytes % 4.9 Neutrophils # 24.2 H Neutrophils % 86.6 H Nucleated Red Blood Cells # 0.0 Nucleated Red Blood Cells % 0.0 Phosphorus Level 2.4 L Platelet Count 479 H Potassium Level 3.5 Red Blood Count 3.12 L Red Cell Distribution Width 13.5 Sodium Level 139 White Blood Count 27.9 H Test 09/04/16 08:07 Bedside Glucose 182 Medications Medications Current Medications Acetaminophen (Tylenol Tab) 650 mg Q4H PRN PO pain/fever; Start 09/02/16 at 02: 00 Morphine Sulfate 4 mg 4 mg Q4H PRN IV pain Last administered on 09/02/16 05:17 ; Admin Dose 4 MG; Start 09/02/16 at 02:00 Sodium Chloride (NS) 1,000 ml @ 75 mls/hr [id number] IV Last administered on 09/04 08:54; Admin Dose 75 MLS/HR; Start 09/02/16 at 02:00 Miscellaneous Information 1 ea NOTE XX ; Start 09/02/16 at 09:30 Glucose (Glutose) 15 gm Q15M PRN PO DECREASED GLUCOSE; Start 09/02/16 at 09:30 Glucose (Glutose) 22.5 gm Q15M PRN PO DECREASED GLUCOSE; Start 09/02/16 at 09: 30 Dextrose (D50w Syringe) 25 ml Q15M PRN IV DECREASED GLUCOSE; Start 09/02/16 at 09:30 Dextrose (D50w Syringe) 50 ml Q15M PRN IV DECREASED GLUCOSE; Start 09/02/16 at 09:30 Glucagon (Glucagen) 1 mg Q15M PRN IM DECREASED GLUCOSE; Start 09/02/16 at 09:30 Glucose (Glutose) 15 gm Q15M PRN BUCCAL DECREASED GLUCOSE; Start 09/02/16 at 09 :30 Duloxetine HCl (Cymbalta) 20 mg DAILY PO Last administered on 09/04/16 08:54; Admin Dose 20 MG; Start 09/02/16 at 11:00 Lisinopril (Zestril) 20 mg DAILY PO Last administered on 09/04/16 08:54; Admin Dose 20 MG; Start 09/02/16 at 10:00 Oxycodone/ Acetaminophen (Percocet (5/ 325)) 1 tab Q4H PRN PO MILD PAIN (1-3) Last administered on 09/02/16 17:49; Admin Dose 1 TAB; Start 09/02/16 at 15:30 Oxycodone/ Acetaminophen (Percocet (5/ 325)) 2 tab Q4H PRN PO MODERATE PAIN (4- 6); Start 09/02/16 at 15:30 Morphine Sulfate (morphine) 2 mg ONCE PRN IV SEVERE PAIN LEVEL 7-10 Last administered on 09/02/16 23:44; Admin Dose 2 MG; Start 09/02/16 at 15:30 Ondansetron HCl (Zofran Inj) 4 mg Q6H PRN IV NAUSEA Last administered on 01:47; Admin Dose 4 MG; Start 09/02/16 at 15:30 Metoclopramide HCl 10 mg 10 mg Q6 IV Last administered on 09/04/16 06:45; Admin Dose 10 MG; Start 09/02/16 at 18:00 Metronidazole (Flagyl 500 Mg (Pmx)) 100 ml @ 100 mls/hr Q8 IVPB Last administered on 09/04/16 05:35; Admin Dose 100 MLS/HR; Start 09/02/16 at 22:00 Insulin Glargine (Lantus) 15 unit QHS SC Last administered on 09/03/16 20:50; Admin Dose 15 UNIT; Start 09/03/16 at 21:00 Famotidine (Pepcid Iv) 20 mg BID IV Last administered on 09/04/16 08:54; Admin Dose 20 MG; Start 09/03/16 at 13:30 Diagnostic Test (Pha) 1 ea 1 ea 02 XX ; Start 09/03/16 at 15:30 Imipenem/ Cilastatin Sodium (Primaxin 500 Mg/ 100 ml (Pmx)) 100 ml @ 100 mls/ hr Q6 IVPB Last administered on 09/04/16 08:53; Admin Dose 100 MLS/HR; Start 09/04/16 at 07:00 Enoxaparin Sodium (Lovenox) 40 mg DAILY SC Last administered on 09/04/16 08:57 ; Admin Dose 40 MG; Start 09/04/16 at 09:00 BLANCA CARVALHO Sep 04, 2016 10:19
--- NOTE | 2016-09-04 17:32 | PN ---
DATE: Postoperative day #2. Although the patient has been afebrile and tolerating liquids and has bowel m ovements, she continues to have leukocytosis of 27,000. OBJECTIVE: ABDOMEN: Her abdominal examination is benign and her incision is clean. PLAN: Soft diet. Continue medical management. Dictated By: ANGELICA BLAND/RIGO Conf#: [id number] DID#: [id number]
[2016-09-04 19:50] VITALS: BP 146/74; RESP 18
[2016-09-04] MEDS ORDERED: ENOXAPARIN 80 MG/0.8 ML SYG SC SCH (20:00)
[2016-09-04] MEDS: INSULIN GLARGINE [LANtus] 3 ML PEN SC SCH (21:30)
[2016-09-05] MEDS: ACCUCHECK 2 AM XX SCH (02:43)
[2016-09-05 05:06] LABS: ADD SCAN DIFF NO
[2016-09-05 05:16] LABS: BASOPHILS % 0.2 % (0.0-2.0); EOSINOPHILS # 0.4 10^3/ul (0.0-0.5); EOSINOPHILS % 1.9 % (0.0-7.0); HEMATOCRIT 26.8 % (37.0-47.0); LYMPHOCYTES # 1.8 10^3/ul (0.8-2.9); LYMPHOCYTES % 9.7 % (15.0-51.0); MEAN CORPUSCULAR HEMOGLOBIN 28.8 pg (29.0-33.0); MEAN CORPUSCULAR HGB CONC 33.6 g/dl (32.0-37.0); MEAN CORPUSCULAR VOLUME 85.9 fl (82.0-101.0); MEAN PLATELET VOLUME 9.3 fl (7.4-10.4); MONOCYTE # 0.9 10^3/ul (0.3-0.9); NEUTROPHIL # 15.4 10^3/ul (1.6-7.5); NEUTROPHILS % 82.2 % (39.0-77.0); PLATELET COUNT 544 10^3/UL (140-415); RED BLOOD COUNT 3.12 10^6/ul (4.20-5.40); RED CELL DISTRIBUTION WIDTH 13.7 % (11.5-14.5); WHITE BLOOD COUNT 18.7 10^3/ul (4.8-10.8)
[2016-09-05] MEDS: metroNIDAZOLE 500 MG/NS (PMX) 100 ML IVPB SCH (05:21)
[2016-09-05] MEDS: METOCLOPRAMIDE 10 MG INJ IV SCH ×4 (05:21→23:42)
[2016-09-05 05:30] LABS: MAGNESIUM 1.8 mg/dl (1.7-2.5); PHOSPHORUS 2.7 mg/dl (2.5-4.9)
[2016-09-05 05:44] LABS: ALBUMIN 2.4 g/dl (3.3-4.9)
[2016-09-05 05:45] LABS: POTASSIUM 3.2 mmol/L (3.5-5.1)
[2016-09-05 05:47] LABS: ALBUMIN/GLOBULIN RATIO 0.64; CREATININE 0.46 mg/dl (0.44-1.00); TOTAL PROTEIN 6.1 g/dl (6.1-8.1)
[2016-09-05 05:48] LABS: CALCIUM 8.2 mg/dl (8.4-10.2)
[2016-09-05] MEDS ORDERED: POTASSIUM CHLORIDE (SR) 20 MEQ TAB PO STA (06:09)
[2016-09-05] MEDS ORDERED: MAGNESIUM SULFATE 2 GM/50 ML 50 ML IVPB ONE (06:30)
[2016-09-05] MEDS: IMIPENEM-CILAST 500MG IV (PMX) 100 ML IVPB SCH ×4 (06:37→23:42)
[2016-09-05] MEDS: Insulin NOVOLOG SS MILD Algorithm (SS with meals and bedtime) SC SCH ×4 (07:20→21:05)
[2016-09-05 08:08] VITALS: BP 170/82; RESP 18
[2016-09-05] MEDS: DULOXETINE 20 MG CAP DR PO SCH (08:30)
[2016-09-05] MEDS: LISINOPRIL 20 MG TAB PO SCH (08:30)
[2016-09-05] MEDS: FAMOTIDINE 20 MG INJ IV SCH (08:30)
[2016-09-05] MEDS: ENOXAPARIN 40 MG/0.4 ML SYG SC SCH (08:32)
[2016-09-05] MEDS: SOD CHLORIDE 0.9% 1,000 ML IV SCH ×2 (10:00→23:20)
--- NOTE | 2016-09-05 12:46 | PN ---
Date/Time of Note Date/Time of Note DATE: 09/05/16 TIME: 12:30 Assessment/Plan VTE Prophylaxis VTE Prophylaxis Intervention: LMWH Lines/Catheters IV Catheter Type (from Nrs): Peripheral IV Urinary Cath still in place: No Assessment/Plan Assessment/Plan 56 yo female with: 1. Right pericolic abscess with unidentifiable appendix and possible cecal mass s/p right hemicolectomy and drainage of right pericolic abscess Continue IV abx, drain in place, improving leukocytosis this AM. Intra op cx with E coli and Gamma hemolytic strep, on Imipenem based on current sensitivities Encourage ambulation Follow up surgical recommendations today 2. Diabetes Mellitus: A1C 8.0 For now continue SSI and resume Lantus 20 unit qhs Replete K and Mag today Prophylaxis: Lovenox for DVT ppx and Pepcid for GI ppx. Disposition: follow up surgical recs today Subjective 24 Hr Interval Summary Free Text/Dictation Patient doing well, afebrile and ambulatory No complaints today WBC trending down now on Imipenem Exam/Review of Systems Vital Signs Vitals Vital Signs Date Time Temp Pulse Resp B/P Pulse Ox O2 Delivery O2 Flow Rate FiO2 09/05/16 08:08 98.1 94 18 170/82 98 09/03/16 17:00 Room Air 09/03/16 08:00 2.0 Intake and Output 09/04/16 09/04/16 09/05/16 15:00 23:00 07:00 Intake Total 1390 ml 820 ml Output Total 555 ml 650 ml Balance 835 ml 170 ml Exam Constitutional: alert, oriented, well developed Respiratory: clear to auscultation, normal air movement Cardiovascular: nl pulses, regular rate and rhythm Gastrointestinal: non-tender, other (drain in place ), soft Musculoskeletal: nl extremities to inspection, nl gait and stance Extremities: normal pulses, other (no edema, clubbing or cyanosis ) Neurological: MOOSE HUNTER II-XII intact, nl mental status, nl speech, nl strength Results Result Diagram: 09/05/16 0415 09/05/16 0415 Results 24 hrs Laboratory Tests Test 09/04/16 17:22 09/04/16 21:18 09/05/16 02:43 09/05/16 04:15 Bedside Glucose 131 181 138 Alanine Aminotransferase (ALT/SGPT) 21 Albumin 2.4 L Albumin/Globulin Ratio 0.64 Alkaline Phosphatase 107 Anion Gap 14 Aspartate Amino Transf (AST/SGOT) 16 Basophils # 0.0 Basophils % 0.2 Blood Urea Nitrogen 9 Calcium Level 8.2 L Carbon Dioxide Level 25 Chloride Level 105 Creatinine 0.46 Direct Bilirubin 0.00 Eosinophils # 0.4 Eosinophils % 1.9 Globulin 3.70 H Glucose Level 121 # Hematocrit 26.8 L Hemoglobin 9.0 L Indirect Bilirubin 0.0 Lymphocytes # 1.8 Lymphocytes % 9.7 L Magnesium Level 1.8 Mean Corpuscular Hemoglobin 28.8 L Mean Corpuscular Hemoglobin Concent 33.6 Mean Corpuscular Volume 85.9 Mean Platelet Volume 9.3 Monocytes # 0.9 Monocytes % 5.0 Neutrophils # 15.4 H Neutrophils % 82.2 H Nucleated Red Blood Cells # 0.0 Nucleated Red Blood Cells % 0.0 Phosphorus Level 2.7 Platelet Count 544 H Potassium Level 3.2 L Red Blood Count 3.12 L Red Cell Distribution Width 13.7 Sodium Level 141 Total Bilirubin 0.0 L Total Protein 6.1 White Blood Count 18.7 #H Test 09/05/16 08:29 Bedside Glucose 126 Medications Medications Current Medications Acetaminophen (Tylenol Tab) 650 mg Q4H PRN PO pain/fever; Start 09/02/16 at 02: 00 Morphine Sulfate 4 mg 4 mg Q4H PRN IV pain Last administered on 09/02/16 05:17 ; Admin Dose 4 MG; Start 09/02/16 at 02:00 Sodium Chloride (NS) 1,000 ml @ 75 mls/hr [id number] IV Last administered on 09/04 21:31; Admin Dose 75 MLS/HR; Start 09/02/16 at 02:00 Miscellaneous Information 1 ea NOTE XX ; Start 09/02/16 at 09:30 Glucose (Glutose) 15 gm Q15M PRN PO DECREASED GLUCOSE; Start 09/02/16 at 09:30 Glucose (Glutose) 22.5 gm Q15M PRN PO DECREASED GLUCOSE; Start 09/02/16 at 09: 30 Dextrose (D50w Syringe) 25 ml Q15M PRN IV DECREASED GLUCOSE; Start 09/02/16 at 09:30 Dextrose (D50w Syringe) 50 ml Q15M PRN IV DECREASED GLUCOSE; Start 09/02/16 at 09:30 Glucagon (Glucagen) 1 mg Q15M PRN IM DECREASED GLUCOSE; Start 09/02/16 at 09:30 Glucose (Glutose) 15 gm Q15M PRN BUCCAL DECREASED GLUCOSE; Start 09/02/16 at 09 :30 Duloxetine HCl (Cymbalta) 20 mg DAILY PO Last administered on 09/05/16 08:30; Admin Dose 20 MG; Start 09/02/16 at 11:00 Lisinopril (Zestril) 20 mg DAILY PO Last administered on 09/05/16 08:30; Admin Dose 20 MG; Start 09/02/16 at 10:00 Oxycodone/ Acetaminophen (Percocet (5/ 325)) 1 tab Q4H PRN PO MILD PAIN (1-3) Last administered on 09/02/16 17:49; Admin Dose 1 TAB; Start 09/02/16 at 15:30 Oxycodone/ Acetaminophen (Percocet (5/ 325)) 2 tab Q4H PRN PO MODERATE PAIN (4- 6); Start 09/02/16 at 15:30 Morphine Sulfate (morphine) 2 mg ONCE PRN IV SEVERE PAIN LEVEL 7-10 Last administered on 09/02/16 23:44; Admin Dose 2 MG; Start 09/02/16 at 15:30 Ondansetron HCl (Zofran Inj) 4 mg Q6H PRN IV NAUSEA Last administered on 01:47; Admin Dose 4 MG; Start 09/02/16 at 15:30 Metoclopramide HCl (Reglan) 10 mg Q6 IV Last administered on 09/05/16 05:21; Admin Dose 10 MG; Start 09/02/16 at 18:00 Famotidine (Pepcid Iv) 20 mg BID IV Last administered on 09/05/16 08:30; Admin Dose 20 MG; Start 09/03/16 at 13:30 Diagnostic Test (Pha) 1 ea 1 ea 02 XX Last administered on 09/05/16 02:43; Admin Dose 1 EA; Start 09/03/16 at 15:30 Imipenem/ Cilastatin Sodium (Primaxin 500 Mg/ 100 ml (Pmx)) 100 ml @ 100 mls/ hr Q6 IVPB Last administered on 09/05/16 06:37; Admin Dose 100 MLS/HR; Start 09/04/16 at 07:00 Enoxaparin Sodium (Lovenox) 40 mg DAILY SC Last administered on 09/05/16 08:32 ; Admin Dose 40 MG; Start 09/04/16 at 09:00 Insulin Glargine (Lantus) 20 unit QHS SC Last administered on 09/04/16 21:30; Admin Dose 20 UNIT; Start 09/04/16 at 21:00 BLANCA CARVALHO Sep 05, 2016 12:41
--- NOTE | 2016-09-05 13:54 | PN ---
DATE: 09/05/2016 SURGERY PROGRESS NOTE Postoperative day #3. Patient continues to improve nicely. She has been afebrile for the last 24 h ours and feels well and is in good spirits. She is tolerating p.o. and having bowel function. Her abdominal examination is benign. The SUDARSHAN drainage is serous. White count has come down to 18,700. PLAN: I will discontinue IV fluids. If continues to improve the patient might be able to be discha rged tomorrow. Dictated By: ANGELICA BLAND/RIGO Conf#: [id number] DID#: [id number]
[2016-09-05 20:09] VITALS: BP 142/80; RESP 18
[2016-09-05] MEDS: FAMOTIDINE 20 MG TAB PO SCH (20:58)
[2016-09-05] MEDS: INSULIN GLARGINE [LANtus] 3 ML PEN SC SCH (21:04)
[2016-09-05] MEDS: OXYCODONE/ACETAMINOPHEN (5/325) TAB PO PRN (21:05)
[2016-09-06] MEDS: ACCUCHECK 2 AM XX SCH (02:39)
[2016-09-06] MEDS: IMIPENEM-CILAST 500MG IV (PMX) 100 ML IVPB SCH (05:33)
[2016-09-06] MEDS: METOCLOPRAMIDE 10 MG INJ IV SCH ×2 (05:33→12:00)
[2016-09-06 05:42] LABS: ADD SCAN DIFF NO
[2016-09-06 06:12] LABS: BASOPHILS % 0.3 % (0.0-2.0); EOSINOPHILS # 0.4 10^3/ul (0.0-0.5); HEMOGLOBIN 8.9 g/dl (12.0-16.0); LYMPHOCYTES # 1.7 10^3/ul (0.8-2.9); LYMPHOCYTES % 11.8 % (15.0-51.0); MEAN CORPUSCULAR HEMOGLOBIN 28.9 pg (29.0-33.0); MEAN CORPUSCULAR VOLUME 87.7 fl (82.0-101.0); MEAN PLATELET VOLUME 9.3 fl (7.4-10.4); MONOCYTES % 6.8 % (0.0-11.0); NEUTROPHIL # 10.8 10^3/ul (1.6-7.5); NEUTROPHILS % 76.1 % (39.0-77.0); PLATELET COUNT 574 10^3/UL (140-415); RED BLOOD COUNT 3.08 10^6/ul (4.20-5.40); RED CELL DISTRIBUTION WIDTH 13.8 % (11.5-14.5); WHITE BLOOD COUNT 14.2 10^3/ul (4.8-10.8)
[2016-09-06 06:13] LABS: POTASSIUM 3.6 mmol/L (3.5-5.1)
[2016-09-06 06:16] LABS: CREATININE 0.44 mg/dl (0.44-1.00)
[2016-09-06 08:22] VITALS: BP 147/79; RESP 18
[2016-09-06] MEDS: DULOXETINE 20 MG CAP DR PO SCH (08:34)
[2016-09-06] MEDS: LISINOPRIL 20 MG TAB PO SCH (08:35)
[2016-09-06] MEDS: FAMOTIDINE 20 MG TAB PO SCH (08:35)
[2016-09-06] MEDS: ENOXAPARIN 40 MG/0.4 ML SYG SC SCH (08:37)
[2016-09-06] MEDS: Insulin NOVOLOG SS MILD Algorithm (SS with meals and bedtime) SC SCH ×2 (08:37→11:10)
--- NOTE | 2016-09-06 10:14 | PN ---
DATE: 09/06/2016 Postoperative day #4. The patient has been afebrile for the last 24 hours. Her abdominal examinati on is benign and her SUDARSHAN drainage is serous. Her white blood cell count is coming down nicely. It i s down to 14,200. IMPRESSION: Excellent recovery. PLAN: I have cleared the patient for discharge home with p.o. antibiotics and home health for drain care. I will see her in the office next week for staple and drain removal. Dictated By: ANGELICA BLAND/RIGO Conf#: [id number] DID#: [id number]
[2016-09-06] MEDS ORDERED: LEVOFLOXACIN 500 MG TAB PO SCH (10:30)
--- NOTE | 2016-09-06 10:33 | PN ---
Date/Time of Note Date/Time of Note DATE: 09/06/16 TIME: 10:25 Assessment/Plan VTE Prophylaxis VTE Prophylaxis Intervention: LMWH Lines/Catheters IV Catheter Type (from Nrs): Peripheral IV Urinary Cath still in place: No Assessment/Plan Assessment/Plan 56 yo female with: 1. Right pericolic abscess with unidentifiable appendix and possible cecal mass s/p right hemicolectomy and drainage of right pericolic abscess On IV abx, drain in place, leukocytosis keeps improving this AM. Intra op cx with E coli and Gamma hemolytic strep and bacteroides, will d/c home on Levaquin and Flagyl based on current cultures and sensitivities x 10 days Follow up with Dr Godoy as outpatient in 1 week F/u with Home health for wound and drain care. 2. Diabetes Mellitus: A1C 8.0 Resume/continue home regimen Prophylaxis: Lovenox for DVT ppx and Pepcid for GI ppx. Disposition: D/c home today with home health for wound and drain care. F/u with Surgery and PCP outpatient. Subjective 24 Hr Interval Summary Free Text/Dictation Patient doing well No complaints, tolerating po well D/c home today Exam/Review of Systems Vital Signs Vitals Vital Signs Date Time Temp Pulse Resp B/P Pulse Ox O2 Delivery O2 Flow Rate FiO2 09/06/16 08:22 98.7 85 18 147/79 95 09/03/16 17:00 Room Air 09/03/16 08:00 2.0 Intake and Output 09/05/16 09/05/16 09/06/16 15:00 23:00 07:00 Intake Total 200 ml 1300 ml 960 ml Output Total 40 ml 60 ml Balance 200 ml 1260 ml 900 ml Exam Constitutional: alert, oriented, well developed Respiratory: clear to auscultation, normal air movement Cardiovascular: nl pulses, regular rate and rhythm Gastrointestinal: non-tender, other (drain in place with sero sanguinous output , wound clean ), soft Musculoskeletal: nl extremities to inspection, other (no edema, clubbing or cyanosis ) Extremities: normal pulses Neurological: [employer] II-XII intact, nl mental status, nl speech, nl strength Results Result Diagram: 09/06/1641909/06/16 042 Results 24 hrs Laboratory Tests Test 09/05/16 12:31 09/05/16 16:59 09/05/16 20:57 09/06/16 02:40 Bedside Glucose 151 182 227 H 166 Test 09/06/16 04:20 09/06/16 08:33 Anion Gap 11 Basophils # 0.0 Basophils % 0.3 Blood Urea Nitrogen 9 Calcium Level 8.0 L Carbon Dioxide Level 28 Chloride Level 102 Creatinine 0.44 Eosinophils # 0.4 Eosinophils % 3.0 Glucose Level 179 Hematocrit 27.0 L Hemoglobin 8.9 L Lymphocytes # 1.7 Lymphocytes % 11.8 L Magnesium Level 1.9 Mean Corpuscular Hemoglobin 28.9 L Mean Corpuscular Hemoglobin Concent 33.0 Mean Corpuscular Volume 87.7 Mean Platelet Volume 9.3 Monocytes # 1.0 H Monocytes % 6.8 Neutrophils # 10.8 H Neutrophils % 76.1 Nucleated Red Blood Cells # 0.0 Nucleated Red Blood Cells % 0.0 Platelet Count 574 H Potassium Level 3.6 Red Blood Count 3.08 L Red Cell Distribution Width 13.8 Sodium Level 137 White Blood Count 14.2 #H Bedside Glucose 173 Medications Medications Current Medications Acetaminophen (Tylenol Tab) 650 mg Q4H PRN PO pain/fever; Start 09/02/16 at 02: 00 Morphine Sulfate 4 mg 4 mg Q4H PRN IV pain Last administered on 09/02/16 05:17 ; Admin Dose 4 MG; Start 09/02/16 at 02:00 Sodium Chloride (NS) 1,000 ml @ 75 mls/hr [id number] IV Last administered on 09/04 21:31; Admin Dose 75 MLS/HR; Start 09/02/16 at 02:00 Miscellaneous Information 1 ea NOTE XX ; Start 09/02/16 at 09:30 Glucose (Glutose) 15 gm Q15M PRN PO DECREASED GLUCOSE; Start 09/02/16 at 09:30 Glucose (Glutose) 22.5 gm Q15M PRN PO DECREASED GLUCOSE; Start 09/02/16 at 09: 30 Dextrose (D50w Syringe) 25 ml Q15M PRN IV DECREASED GLUCOSE; Start 09/02/16 at 09:30 Dextrose (D50w Syringe) 50 ml Q15M PRN IV DECREASED GLUCOSE; Start 09/02/16 at 09:30 Glucagon (Glucagen) 1 mg Q15M PRN IM DECREASED GLUCOSE; Start 09/02/16 at 09:30 Glucose (Glutose) 15 gm Q15M PRN BUCCAL DECREASED GLUCOSE; Start 09/02/16 at 09 :30 Duloxetine HCl (Cymbalta) 20 mg DAILY PO Last administered on 09/06/16 08:34; Admin Dose 20 MG; Start 09/02/16 at 11:00 Lisinopril (Zestril) 20 mg DAILY PO Last administered on 09/06/16 08:35; Admin Dose 20 MG; Start 09/02/16 at 10:00 Oxycodone/ Acetaminophen (Percocet (5/ 325)) 1 tab Q4H PRN PO MILD PAIN (1-3) Last administered on 09/05/16 21:05; Admin Dose 1 TAB; Start 09/02/16 at 15:30 Oxycodone/ Acetaminophen (Percocet (5/ 325)) 2 tab Q4H PRN PO MODERATE PAIN (4- 6); Start 09/02/16 at 15:30 Morphine Sulfate (morphine) 2 mg ONCE PRN IV SEVERE PAIN LEVEL 7-10 Last administered on 09/02/16 23:44; Admin Dose 2 MG; Start 09/02/16 at 15:30 Ondansetron HCl (Zofran Inj) 4 mg Q6H PRN IV NAUSEA Last administered on 01:47; Admin Dose 4 MG; Start 09/02/16 at 15:30 Metoclopramide HCl (Reglan) 10 mg Q6 IV Last administered on 09/06/16 05:33; Admin Dose 10 MG; Start 09/02/16 at 18:00 Diagnostic Test (Pha) (Accucheck) 1 ea 02 XX Last administered on 09/06/16 02: 39; Admin Dose 1 EA; Start 09/03/16 at 15:30 Enoxaparin Sodium (Lovenox) 40 mg DAILY SC Last administered on 09/06/16 08:37 ; Admin Dose 40 MG; Start 09/04/16 at 09:00 Insulin Glargine (Lantus) 20 unit QHS SC Last administered on 09/05/16 21:04; Admin Dose 20 UNIT; Start 09/04/16 at 21:00 Famotidine (Pepcid) 20 mg BID PO Last administered on 3/21/17at 08:35; Admin Dose 20 MG; Start 09/05/16 at 21:00 Levofloxacin (Levaquin) 500 mg DAILY PO ; Start 09/06/16 at 10:30; Status UNV Metronidazole (Flagyl) 500 mg Q8 PO ; Start 09/06/16 at 14:00; Status UNV BLANCA CARVALHO Sep 06, 2016 10:33
--- NOTE | 2016-09-06 10:35 | PDOCDIS ---
Discharge Instructions CONDITION Patient Condition: Stable HOME CARE INSTRUCTIONS: Special Diet: ADA diet ACTIVITY: Activity Restrictions: Slowly Increase Activity FOLLOW UP/APPOINTMENTS Appointments Follow up with PCP within 1 week Follow up with Dr Godoy in 1 week Follow up with Home health for drain and wound care BLANCA CARVALHO Sep 06, 2016 10:35
[2016-09-06] MEDS ORDERED: LEVO500T10 PO (10:38)
[2016-09-06] MEDS ORDERED: Oxycodone/Acetamin (5/325) PO (10:38)
[2016-09-06] MEDS ORDERED: METR500T14 PO (10:38)
[2016-09-06] MEDS ORDERED: metroNIDAZOLE 500 MG TAB PO SCH (14:00)
--- NOTE | 2016-09-06 18:13 | RADRPT ---
Vent Rate: 89 bpm RR Interval: 0 msec MS Interval: 156 msec QRS Duration: 74 msec QT Interval: 344 msec QTC Interval: 418 msec P-R-T [place]: 47 - 26 - 52 degrees Normal sinus rhythm Low voltage QRS Cannot rule out Anterior infarct , age undetermined Abnormal ECG Electronically Signed By: Heber Jha [id number]
--- NOTE | 2016-09-07 06:32 | DS ---
DATE OF ADMISSION: 09/02/2016 DATE OF DISCHARGE: 09/06/2016 ADMITTING PHYSICIAN: Dr. Enciso DISCHARGING PHYSICIAN: Dr. Parker CONSULTANTS DURING THIS ADMISSION: Dr. Vishnu Godoy from general surgery. BRIEF HISTORY OF PRESENT ILLNESS: This is a 56-year-old female with history of hypertension and clarissa betes mellitus who presented to the emergency department with complaint of abdominal pain, progressi vely worsening for a period of 5 days. The patient had anorexia along with the pain. She had a CAT scan of the abdomen and pelvis which did diagnose the probable appendicitis, possible ruptured. Th e patient was started on IV antibiotics and admitted to a medical/surgical bed. HOSPITAL COURSE: The patient was seen by Dr. Godoy from surgery and was taken to the OR within 24 hours. It was found that she had a right pericolic abscess with unidentifiable appendix and possibl e cecal mass. She had a laparoscopic procedure, right hemicolectomy, drainage of right pericolic ab scess. Of note, the procedure started and laparoscopic had to be converted to open due to the findi ng of abscess. Postoperatively, she was readmitted to a medical/surgical bed. She was maintained on Zosyn along wi th cefazolin and Flagyl for the first days of her hospitalization. Her white count kept trending up to 27,000. By then, the intraoperative cultures came back with E. coli which is resistant to unfor tunately cephalosporin and penicillin, but sensitive to imipenem and Levaquin. Her antibiotics were switched to imipenem. Within 48 hours, her white count is down to 14,000. Today the patient is do ing well, ambulating and tolerating p.o. She has a drain in place and the wound looks really good. Therefore, she was cleared by surgery for discharge home. Her antibiotics were adjusted to Levaqui n and Flagyl and anaerobic cultures are growing Bacteroides. The E. coli growing from the intraoper ative cultures are sensitive to Levaquin. Patient was discharged on 10 days of antibiotics with fol low up with Dr. Godoy in 1 week. DISPOSITION: Discharge home. DISCHARGE CONDITION: Stable. DISCHARGE DIET: Diabetic diet. DISCHARGE ACTIVITY: As tolerated, avoiding heavy lifting. FOLLOWUP: The patient is to follow up with primary care physician within 1 week and follow up with Dr. Godoy in 1 week. Home health for home has been ordered for wound care and drain care. DISCHARGE DIAGNOSES: 1. Right pericolic abscess with unidentifiable appendix, possible cecal mass, status post right hem icolectomy and drainage of right pericolic abscess. 2. Diabetes mellitus. 3. Hypertension. DISCHARGE MEDICATIONS: 1. Levofloxacin 500 mg p.o. daily for 10 days. 2. Flagyl 500 mg p.o. q. 8 hours for 10 days. 3. Percocet 5/325 one tab p.o. q.6 hours p.r.n. pain. 4. Tylenol 650 mg p.o. q.6 hours p.r.n. pain or fever. 5. Aspirin 81 mg daily. 6. Cymbalta 20 mg p.o. daily. 7. Lantus 10 units subcutaneously at bedtime. 8. Lisinopril 20 mg p.o. daily. Dictated By: BLANCA NGUYEN/NTS Conf#: [id number] DID#: [id number]
== END 2016-09-06 13:00 | disposition home or self-care (01) | DRG 331 ==
LOC: FTE 19:34 → MS1 09-02 01:31
PROVIDERS: ADMIT Legal Medicine; ATTEND Legal Medicine
PROC: 0W9G4ZZ Drainage of Peritoneal Cavity, Percutaneous Endoscopic Approach (ICD-10-PCS; 2016-09-02)
PROC: 0DTF0ZZ Resection of Right Large Intestine, Open Approach (ICD-10-PCS; principal; 2016-09-02 12:30)
DX: K63.0 Abscess of intestine (principal); I10 Essential (primary) hypertension; E11.9 Type 2 diabetes mellitus without complications; B96.20 Unspecified Escherichia coli [E. coli] as the cause of diseases classified elsewhere; B95.4 Other streptococcus as the cause of diseases classified elsewhere; K63.89 Other specified diseases of intestine; K56.41 Fecal impaction; Z53.31 Laparoscopic surgical procedure converted to open procedure; B96.6 Bacteroides fragilis [B. fragilis] as the cause of diseases classified elsewhere; Z16.19 Resistance to other specified beta lactam antibiotics; Z16.11 Resistance to penicillins; K38.8 Other specified diseases of appendix
CPT/HCPCS: 71010; 74176; 76705; 80048; 80053; 81001; 81003; 82962; 83036; 83690; 83735; 84100; 85025; 85610; 85730; 87070; 87075; 87086; 88307; 93005; 96374; 96375; 97110; 97116; 97162; 97530; J0690; J0743; J1170; J1650; J1815; J2001; J2250; J2270; J2370; J2405; J2543; J2710; J2765; J2795; J3010; J3475; J7030

== ENCOUNTER 2018-03-17 17:47 | Emergency (ER) | END 2018-03-18 07:51 | disposition short-term general hospital (02) ==